=== PATIENT | female | born 1970 | race Caucasian/White ===

== ENCOUNTER 2018-07-03 00:50 | Inpatient (IN) ==
[2018-07-03] MEDS ORDERED: Ipratropium/Albuterol Neb 3 ML IH ONE (01:17)
[2018-07-03] MEDS ORDERED: methylPREDNISolone 125 MG/2 ML VIAL IVP ONE (01:17)
--- NOTE | 2018-07-03 01:26 | Emergency Department Note ---
Disposition Clinical Impression: Exertional dyspnea, Elevated troponin, NSTEMI (non-ST elevated myocardial infarction) Exacerbation of reactive airway disease Qualifiers: Asthma severity: unspecified severity Asthma persistence: unspecified Qualified Code(s): J45.901 - Unspecified asthma with (acute) exacerbation Disposition: Admitted As Inpatient Condition: Good Referrals: NONE,PCP [Primary Care Provider] - Vishal Armstrong [Family Provider] - Forms: ED Satisfaction Letter Time of Disposition: 02:32 SOB HPI - General Chief Complaint: ED Shortness of Breath/Dyspnea Stated Complaint: renee Time Seen by Provider: 07/03/18 00:55 Source: patient Mode of arrival: ambulatory Limitations: no limitations Nursing Notes Reviewed: Yes Vital Signs Reviewed: Yes - History of Present Illness 48-year-old female 1.5 pack per day smoker quit 10 days ago, CAD 2 stents presents to the emergency department with difficulty breathing. As gradually worsened over the past 10 days. Week ago she was seen and evaluated by her primary care physician and placed on breathing treatments and steroids. She reports the breathing treatments do improve her symptoms. The steroid she discontinued on her own because she did not feel it was helping. She reports a productive cough. Denies any fevers. Denies any chest pain. She gets winded on exertion and now at rest. Denies any nausea or vomiting. Denies a prior history of this. She has not been formally diagnosed with COPD. Denies any leg swelling. Denies history of blood clots, recent long-distance travel, cancer. Her granddaughter has similar symptoms of cough and congestion. Pt Subjective Complaint: shortness of breath, cough - Related Data Allergies Allergy/AdvReac Type Severity Reaction Status Date / Time No Known Allergies Allergy Verified 07/03/18 00:59 All systems ED: reviewed and negative except as stated. Review of Systems: As Per HPI Constitutional: Denies: fever, chills ENT ED: Reports: congestion Cardiovascular: Reports: dyspnea on exertion. Denies: chest pain Respiratory: Reports: cough, dyspnea, wheezes. Denies: hemoptysis Gastrointestinal: Denies: nausea, vomiting Musculoskeletal: Denies: back pain Neurological: Denies: headache Past Medical History - Past Medical History Attestation: Yes The following information was validated with the patient. Source: patient Medical history: Reports: coronary artery disease, hyperlipidemia, hypertension Physical Exam - General Limitations: no limitations General appearance: alert, obese - Head Head exam: atraumatic, normocephalic, normal inspection - Eye Eye exam: Present: normal appearance, PERRL, EOMI - ENT ENT exam: normal exam, normal oropharynx, mucous membranes moist - Neck Neck exam: Present: normal inspection, full ROM, trachea midline - Chest Chest inspection: Present: normal inspection. Absent: tenderness - Respiratory Respiratory exam: Present: respiratory distress, wheezes, accessory muscle use, prolonged expiratory phase, other (Poor inspiratory effort, tight aeration) - Expanded Respiratory Exam Location: decreased breath sounds: Left, Right - Cardiovascular Cardiovascular exam: Present: regular rate, normal rhythm, normal heart sounds - Expanded Cardiovascular Exam Peripheral pulses: 2+: radial (R), radial (L) - Abdominal Exam Abdominal exam: Present: soft, Non-Tender. Absent: tenderness, distention, guarding, rebound, rigidity - Extremities Exam Extremities exam: Present: normal inspection, full ROM, normal capillary refill. Absent: tenderness, pedal edema, calf tenderness - Neurological Exam Neurological exam: Present: alert, oriented X3 - Psychiatric Psychiatric exam: Present: normal affect, normal mood - Skin Skin exam: Present: warm, dry, intact, normal color. Absent: rash, cyanosis, diaphoresis Course Course Narrative: Patient presents with progressively shortness of breath with cough. She is afebrile. She is not hypoxic. She has very tight aeration with poor inspiratory effort. There is some wheezing on examination. Concerning for COPD /of airway disease exacerbation. Duoneb and steroids. Workup initiated. Patient is not tachycardic greater than 100 or hypoxic, low risk for PE from well score, PERC positive. Her initial EKG was performed in showed diffuse ST depressions with a possible left bundle branch block. Unfortunately there is no old EKG available for comparison. She denies any chest pain at this time. This could be likely demand ischemia. Will contact the hospice plan administrator discuss the EKG findings. - Reevaluation(s) Reevaluation #1: Patient has a leukocytosis with neutrophilia, no prior labs to compare. Electrolytes normal. He had a critical lab troponin 0.09. Patient will be given an aspirin. I do suspect this could be a demand ischemia by given EKG findings and hypertension will speak with cardiology. Impression is elevated troponin, NSTEMI, RAD exacerbation. Time: 02:29 Reevaluation #2: CT scan of the chest and not reveal pulmonary embolism. No evidence of pneumonia. I do suspect this is the likely component of reactive airway disease if not COPD. She again denies any chest pain. She reports her breathing is much better. She does have occasional wheezing but better aeration then prior. Reports occasionally cough up streaks of blood but denies any vomiting of blood, bloody stools or black tarry stools. At this time it is okay to initiate heparin for low ACS. Patient will be admitted to the medical service. Pression is elevated troponin, exertional dyspnea, NSTEMI Time: 03:51 - Consultations Consultation #1: Spoke to cardiology regarding the elevated troponin 0.[address] depression seen on EKG with AVR elevation. Patient has no chest pain. Possibility of demand ischemia from respiratory issues. No prior labs to compare. Image of the EKG was transmitted to the [facility] plans staff officer for review. Suspect LVH with strain pattern. Her BP has improved spontaneously. Agree with CT scan to evaluate for possible PE or other respiratory etiology. At this time would agree with admission and trending troponin. Would heparinize now and consider stopping if no dynamic changes with troponin. Patient also was able to ambulate to the physician documentation area without any difficulty or complaint of chest pain. Time: 02:37 Consultation #2: Spoke with on-call hospitalist alexis Alvarado to admit for dyspnea on exertion , NSTEMI, elevated trop, RAD/COPD exac. Requests to order the repeat troponin and they will follow. Given the leukocytosis and the patient's symptoms will treat with azithromycin for potential COPD exacerbation despite CT imaging and chest x-ray without focal infiltrate. Time: 04:08 Vital Signs Temperature 98.2 F 07/03/18 00:59 Pulse Rate 89 07/03/18 00:59 Respiratory Rate 18 07/03/18 00:59 Blood Pressure 190/98 07/03/18 00:59 O2 Sat by Pulse Oximetry 93 07/03/18 00:59 Temperature 98.2 F 07/03/18 01:25 Pulse Rate 89 07/03/18 03:48 Respiratory Rate 18 07/03/18 03:48 Blood Pressure 168/103 07/03/18 03:48 O2 Sat by Pulse Oximetry 95 07/03/18 03:48 Oxygen Delivery Oxygen Delivery Room Air Shortness of Breath/Dyspnea - MDM Narrative Medical decision making narrative: Patient was discussed with my attending physician who agrees with ED management and final disposition. They independently evaluated the patient. Please refer to their attestation to this encounter for additional information. This note was generated by [employer] voice recognition software and as a result grammatical or spelling errors may occur using this program. - Medical Records Medical records reviewed: Yes I reviewed the patient's medical records. - Lab Data Lab results reviewed: Yes I reviewed the patient's lab results. Result diagrams: 07/03/18 01:48 07/03/18 01:48 Lab Results 07/03/18 07/03/18 07/03/18 Range/Units 01:48 01:48 01:48 WBC 17.5 H (4.3-11.1) K/mcL RBC 5.06 H (3.82-4.97) M/mcL Hgb 15.7 H (11.5-15.4) g/dL Hct 46.2 H (35.3-44.9) % MCV 91.3 (83.0-100.0) fL MCH 31.0 (28.0-33.3) pg MCHC 34.0 (31.6-35.5) g/dL RDW 13.8 (11.5-14.5) % Plt Count 321 (140-400) K/mcL MPV 10.4 (9.4-12.4) fL Immature Gran % 0.7 (0-4) % Seg Neutrophils % 71.5 % Lymphocytes % 20.9 % Monocytes % 4.5 % Eosinophils % 2.0 % Basophils % 0.4 % Neutrophils # 12.5 H (1.6-8.9) K/mcL Lymphocytes # 3.7 (0.6-4.6) K/mcL Monocytes # 0.8 (0.0-1.3) K/mcL Eosinophils # 0.4 (0.0-0.6) K/mcL Basophils # 0.1 (0.0-0.2) K/mcL PT (9.4-12.1) Seconds INR APTT (26.0-36.0) Seconds Heparin Anti-Xa, Unfract (0.30-0.70) IU/mL Sodium 142 (136-145) mEq/L Potassium 3.3 L (3.5-5.1) mEq/L Chloride 106 (98-107) mEq/L Carbon Dioxide 28 (23-29) mEq/L BUN 15 (6-20) mg/dL Creatinine 0.93 (0.60-1.20) mg/dL Est GFR ( Amer) > 60 (> 60) Est GFR (Non-Af Amer) > 60 (> 60) BUN/Creatinine Ratio 16 (6-26) Glucose 113 H (70-105) mg/dL Calculated Osmolality 296 (280-300) Calcium 9.2 (8.6-10.3) mg/dL Troponin I 0.09 H* (< 0.04) ng/mL B-Natriuretic Peptide 206 H (Less than 100) pg/mL 07/03/18 Range/Units 01:48 WBC (4.3-11.1) K/mcL RBC (3.82-4.97) M/mcL Hgb (11.5-15.4) g/dL Hct (35.3-44.9) % MCV (83.0-100.0) fL MCH (28.0-33.3) pg MCHC (31.6-35.5) g/dL RDW (11.5-14.5) % Plt Count (140-400) K/mcL MPV (9.4-12.4) fL Immature Gran % (0-4) % Seg Neutrophils % % Lymphocytes % % Monocytes % % Eosinophils % % Basophils % % Neutrophils # (1.6-8.9) K/mcL Lymphocytes # (0.6-4.6) K/mcL Monocytes # (0.0-1.3) K/mcL Eosinophils # (0.0-0.6) K/mcL Basophils # (0.0-0.2) K/mcL PT 11.1 (9.4-12.1) Seconds INR 1.0 APTT 32.6 (26.0-36.0) Seconds Heparin Anti-Xa, Unfract 0.01 L (0.30-0.70) IU/mL Sodium (136-145) mEq/L Potassium (3.5-5.1) mEq/L Chloride (98-107) mEq/L Carbon Dioxide (23-29) mEq/L BUN (6-20) mg/dL Creatinine (0.60-1.20) mg/dL Est GFR ( Amer) (> 60) Est GFR (Non-Af Amer) (> 60) BUN/Creatinine Ratio (6-26) Glucose (70-105) mg/dL Calculated Osmolality (280-300) Calcium (8.6-10.3) mg/dL Troponin I (< 0.04) ng/mL B-Natriuretic Peptide (Less than 100) pg/mL - Radiology Data Radiology results reviewed: Yes I reviewed the patient's radiology results. Chest X-Ray 07/03/18 01:17 IMPRESSION: No focal pneumonia or any other acute cardiopulmonary abnormality. D/ / Timoteo Stone / Timoteo Stone Interpreting Provider: Timoteo Stone - EKG Data EKG attestation: Yes I reviewed and interpreted this EKG. EKG results narrative: EKG performed 0121 normal sinus rhythm 89 bpm, incomplete left bundle branch block, there is diffuse ST depressions throughout with elevation in V1 >2 blocks , patient is not having any chest pain, there is no old EKG available for comparison at this time. It does not meet Sgarbossa criteria.
--- NOTE | 2018-07-03 01:36 | Emergency Department Note ---
Disposition Clinical Impression: Exertional dyspnea Disposition: Admitted As Inpatient Referrals: NONE,PCP [Primary Care Provider] - Vishal Armstrong [Family Provider] - Forms: ED Satisfaction Letter General Adult HPI - General Chief complaint: ED Shortness of Breath/Dyspnea Stated complaint: renee Time Seen by Provider: 07/03/18 00:55 Source: patient Mode of arrival: ambulatory Limitations: no limitations - History of Present Illness Pain Scale: 6 - Related Data Allergies Allergy/AdvReac Type Severity Reaction Status Date / Time No Known Allergies Allergy Verified 07/03/18 00:59 Past Medical History - Past Medical History Medical history: Reports: COPD - Social History Smoking Status: Current every day smoker Smokeless Tobacco Status: No Alcohol use: Reports: none Drug use: Reports: none Physical Exam - General Limitations: no limitations General appearance: alert, in no apparent distress Course Vital Signs Temperature 98.2 F 07/03/18 00:59 Pulse Rate 89 07/03/18 00:59 Respiratory Rate 18 07/03/18 00:59 Blood Pressure 190/98 07/03/18 00:59 O2 Sat by Pulse Oximetry 93 07/03/18 00:59 Temperature 98.2 F 07/03/18 01:25 Pulse Rate 89 07/03/18 01:25 Respiratory Rate 18 07/03/18 01:25 Blood Pressure 190/98 07/03/18 01:25 O2 Sat by Pulse Oximetry 93 07/03/18 01:25 Oxygen Delivery Oxygen Delivery Room Air Attestation Statement - Attestation Attestation: I examined this patient and my medical decision-making was reviewed with the Resident Physician. I agree with the documented findings, disposition and treatment plan as described except to the extent set forth below. 48 year old female prsnet to the ED with complaints of exertional dyspnea and states that she also has a history of COPD and appears to have wheezes in addition. She does have a concerning cardiac history including a recent stent placement in Nov at [facility]. It appears that she has lateral lead ischemia and LBBB and mild elevation in Avr and V1 but no contigious lead elevations and this is likley demand ischemic related. She still smokes 1.5 ppd. We do not have any ekg to compare. This is a concerning ekg and we will continue with cardiopulmonary workup and then consult with cards and then admit to medicine
[2018-07-03 01:58] LABS: Basophils # 0.1 K/mcL (0.0-0.2); Basophils % 0.4 %; Eosinophils # 0.4 K/mcL (0.0-0.6); Hematocrit 46.2 % (35.3-44.9); Hemoglobin 15.7 g/dL (11.5-15.4); Immature Granulocytes % 0.7 % (0-4); Lymphocytes # 3.7 K/mcL (0.6-4.6); Lymphocytes % 20.9 %; Mean Corpuscular Volume 91.3 fL (83.0-100.0); Mean Platelet Volume 10.4 fL (9.4-12.4); Monocytes # 0.8 K/mcL (0.0-1.3); Monocytes % 4.5 %; Neutrophils # 12.5 K/mcL (1.6-8.9); Platelet Count 321 K/mcL (140-400); Red Blood Count 5.06 M/mcL (3.82-4.97); Red Cell Distribution Width 13.8 % (11.5-14.5); Segmented Neutrophils % 71.5 %
[2018-07-03 02:23] LABS: BUN/Creatinine Ratio 16 (6-26); Blood Urea Nitrogen 15 mg/dL (6-20); Calcium 9.2 mg/dL (8.6-10.3); Carbon Dioxide 28 mEq/L (23-29); Chloride 106 mEq/L (98-107); Glucose 113 mg/dL (70-105); Osmolality,Calculated 296 (280-300); Potassium 3.3 mEq/L (3.5-5.1); Sodium 142 mEq/L (136-145); eGFR For Non-African Americans > 60 (> 60)
[2018-07-03 02:26] LABS: Troponin I 0.09 ng/mL (< 0.04)
[2018-07-03] MEDS ORDERED: Aspirin 325 MG TABLET PO ONE (02:26)
[2018-07-03] MEDS ORDERED: Isovue-370 500 ML INFUS..BTL IV ONE (02:28)
[2018-07-03] MEDS ORDERED: *HR* Heparin 5,000 UNIT/ML VIAL IVP ONE (02:50)
[2018-07-03] MEDS ORDERED: *HR* Heparin 5,000 UNIT/ML VIAL IVP PRN ×2 (02:50)
[2018-07-03 02:51] LABS: Prothrombin Time 11.1 Seconds (9.4-12.1)
[2018-07-03 02:54] LABS: Activated Partial Thrombo Time 32.6 Seconds (26.0-36.0)
[2018-07-03] MEDS ORDERED: Heparin 25,000 UNIT/500 ML D5W 25,000 UNIT/500 ML BAG IVC SCH (03:00)
[2018-07-03 03:01] LABS: Heparin anti-factor XA UFH 0.01 IU/mL (0.30-0.70)
[2018-07-03] MEDS ORDERED: Azithromycin 500 MG in D5% in Water 250 ML IVPB ONE (04:11)
[2018-07-03] MEDS ORDERED: Naloxone 0.4 MG/ML INJ IVP PRN (06:48)
--- NOTE | 2018-07-03 06:59 | Internal Med History&Physical ---
Date of Encounter: 07/03/18 Time of Encounter: 06:20 Internal Medicine - H&P: HPI Chief complaint: Chest pain Admitted From: Home Plans for Post Hospital Care: Home History of present illness: Ms. Paul is a 48 year old female Patient has been experiencing chest pain and shortness of breath last 10 days. Pain was located in the center of her chest without radiation. She initially went to the [facility] ER about 1 week ago, and after workup they sent her home. For the last week she has been using albuterol treatments about every 4 hours but they have not helped. She has tried using oxygen at home about 2 L using a tank that she had around but this did not help her shortness of breath either. She particularly feels short of breath with exertion. She has not had symptoms of this level severity, but has had a heart attack about 2 years ago has 4 stents. In the emergency room troponins were elevated to 0.09, and her EKG showed sinus rhythm with a left bundle branch block and diffuse ST depressions and an elevation in V1. Emergency room called the drinking water technician on-call for their opinion, they recommended heparin drip, pain control and they will consult on patient in the morning. Chest x-ray was negative for pneumonia, CTA negative for PE. BNP slightly elevated 206, the patient does not have previous records to compare. Her white count was elevated to 17.5, and vital signs were stable. Upon my assessment patient has no complaints, no chest pain, abdominal pain, nausea, vomiting, diarrhea, constipation. She denies vision changes and headache. Past Med Surg Social Fam HX - Past Medical History Medical history: coronary artery disease, hyperlipidemia, hypertension - Past Surgical History Additional surgical history: left jaw surgery--d/t lock jaw. - Social History Smoking Status: Former smoker Packs per day: 1.5 Smokeless Tobacco Status: No Alcohol use: none Drug use: none - Family History Mother Age: 65 Family Member Ethnicity: Non- Living Status: Still Living Hx Family Cardiac Disorders: Yes (one heart attack) Father Age: 76 Family Member Ethnicity: Non- Living Status: Still Living Internal Medicine - H&P: Meds Clopidogrel [Plavix] 75 mg PO DAILY 07/03/18 [History] 3 Allergy/AdvReac Type Severity Reaction Status Date / Time No Known Allergies Allergy Verified 07/03/18 00:59 All Systems PM: A 10-system review of systems was performed and is negative for pertinent findings except as documented above in the HPI. - Constitutional Vitals: Temp Pulse Resp BP Pulse Ox 98 F 82 17 153/98 92 07/03/18 05:24 07/03/18 05:24 07/03/18 05:24 07/03/18 05:24 07/03/18 05:24 General appearance: Present: cooperative, A&O X 3, pleasant, no acute distress, answers questions appropriately - Head Head exam: Present: normal inspection - Eye Eye exam: Present: EOMI, normal appearance - Respiratory Respiratory exam: Present: decreased breath sounds, wheezes. Absent: respiratory distress - Cardiovascular Cardiovascular exam: Present: RRR. Absent: diastolic murmur, systolic murmur - GI/Abdominal GI/Abdominal exam: Present: normal bowel sounds, soft. Absent: tenderness - Extremities Exam Extremities exam: Present: warm, radial pulses palpable and symmetrical. Absent : calf tenderness, pedal edema, tenderness - Neurological Exam Neurological exam: Present: no focal deficits, strengths equal and symetr throughout. Absent: motor sensory deficit, facial droop, speech deficit - Skin Skin exam: Present: normal color, warm Internal Med - H&P Results - Labs CBC & Chem 7: 07/03/18 01:48 07/03/18 01:48 - Assessment and plan (1) NSTEMI (non-ST elevated myocardial infarction) Current Visit: Yes Status: Acute Assessment and plan: Patient has chest pain with exertion, improved with rest. Troponins elevated to 0.09, with nonspecific EKG changes. Cardiology called, heparin drip initiated. Patient's pain has resolved at this time. Continue heparin drip Continue to trend troponins Cardiology consult in the morning Consideration for stress test, echocardiogram and/or cardiac catheterization. Nothing by mouth for now pending decision on further workup (2) Elevated troponin Current Visit: Yes Status: Acute Assessment and plan: As above, patient presented with a possible NSTEMI, with elevated troponins of 0.09. Currently she has no chest pain. Continue to trend troponins Treatment as above (3) Exertional dyspnea Current Visit: Yes Status: Acute Assessment and plan: Chest x-ray and CTA negative, has been trying oxygen at home without much improvement. Could be related to her and STEMI. Does not have a formal diagnosis of COPD or CHF. BNP elevated to 206. Patient not in respiratory distress currently. ER suspected possible COPD-like picture or reactive airway disease, initiated treatment as such. Continue to monitor with pulse oximeter O2 via nasal cannula Continue breathing treatments Prednisone 40 mg daily Azithromycin 500 mg IV daily (4) Exacerbation of reactive airway disease Current Visit: Yes Status: Acute Assessment and plan: Patient has no formal pulmonary disease diagnosis, however she does have elevated BNP, and shortness of breath with exertion. Elevated white count could be secondary to the last 10 days of shortness of breath and chest pain, will treat as COPD-like picture. Continue treatment as above Qualifiers: Asthma severity: unspecified severity Asthma persistence: unspecified Qualified Code(s): J45.901 - Unspecified asthma with (acute) exacerbation - Time Spent With Patient Total time spent is greater than 50% in coordination of care (as documented) at patient's floor/unit and/or counseling patient: Greater than 35 minutes
[2018-07-03] MEDS ORDERED: Potassium Chloride Elixir 20 MEQ/15 ML UDC PO ONE (07:45)
[2018-07-03 08:47] LABS: Troponin I 0.05 ng/mL (< 0.04)
[2018-07-03] MEDS ORDERED: predniSONE 20 MG TABLET PO SCH (09:00)
--- NOTE | 2018-07-03 09:36 | Cardiology Consult Note ---
Addendum entered and electronically signed by Rolan Bearden 07/03/18 11:34: Discussed with the patient her struggles with her daughter's recent passing and her struggles with raising her daughter's child. -under tremendous emotional stress with limited social support -offered pastoral consult but declined at this point -if she changes her mind, will consult powder expert Original Note: <BeardenRolan - Last Filed: 07/03/18 10:40> Date of Encounter: 07/03/18 Time of Encounter: 08:20 Assessment and Plan (1) Atypical chest pain Current Visit: Yes Status: Acute pt has c/o chest pain for the last 2 1/2 days and SOB for the last ten days. -recently at [place] for supposed pneumonia, tx with cephalexin and steroids -pain at center of her chest with radiation to the neck, arms and back. -"squeezing" chest pain -heart attack 2 yrs ago s/p 4 stents. She states that this pain isn't similar to her heart attack. -She feels that leaning forward makes the pain better and that a deep inspiration makes it worse. She states that she has had fevers but didn't take her temperature. Her grandchild is also sick and was diagnosed with acute bronchitis last night and discharged with abx, tmax of the child was 102. The pt endorses fevers, palpitations, and orthopnea. In the ER the pt had a troponin of 0.09, second troponin of 0.05 and BNP 206. CXR negative or acute cardiopulmonary process. CTA negative for pulmonary embolism. EKG showed LBBB, diffuse ST depression. Currently the pt has no active chest pain. She denies SOB, N/V/D, diaphoresis. Plan: -pt has atypical chest pain that has been over the course of multiple days, lasts >20min, and changes with position; this may be pleuritis 2/2 to respiratory infxn -ECHO pending, ordered per primary on admission -continue to trend troponins -continue heparin drip as per protocol -CHELSEY score of 4 -plan for stress test today, nuclear type to r/o ischemia or infarct -continue home meds - Zestril, Imdur, Plavix, Coreg, Lipitor, ASA -check HbA1c and lipid panel (2) Coronary artery disease Current Visit: No Status: Acute Hx of CAD -IL 2 yrs ago s/p LHC and 4 stents -pt has multiple risk factors for CAD including obesity, HTN and 1.5 PPD smoking hx Plan: -check lipid panel and HbA1c continue home meds - Zestril, Imdur, Plavix, Coreg, Lipitor, ASA -advise for lifestyle modification, heart healthy low fat/low cholesterol diet, and weight loss Qualifiers: Coronary Disease-Associated Artery/Lesion type: unspecified vessel or lesion type [place] vs. transplanted heart: [place] heart Associated angina: with stable angina Qualified Code(s): I25.118 - Atherosclerotic heart disease of [place] coronary artery with other forms of angina pectoris (3) Hypertension Current Visit: No Status: Chronic Pt BP 190/98 on admission -BP 181/109 this morning -poorly controlled BP Plan: -hydralazine q6hr prn SBP >160 -continue home meds Zestril, Coreg Qualifiers: Hypertension type: essential hypertension Qualified Code(s): I10 - Essential (primary) hypertension (4) Hyperlipidemia Current Visit: No Status: Chronic Pt on Lipitr 80mg hs -continue home meds -check lipid panel -encourage low fat, low cholesterol heart healthy diet Qualifiers: Hyperlipidemia type: unspecified Qualified Code(s): E78.5 - Hyperlipidemia , unspecified (5) Obstructive sleep apnea Current Visit: No Status: Suspected Pt reports daytime somnolence, snoring, fatigue, and partner noticing her trying to gasp for breath at night -reccomend overnight pulse ox and PSG if primary okay and agrees -pt should lose weight and advise for lifestyle modifications (6) Dysphagia Current Visit: No Status: Chronic Pt reports having trouble swallowing meats -consult GI if primary okay with this -pt denies any weight loss, melena, hematochezia -denies dysphagia with liquids Qualifiers: Dysphagia type: pharyngeal phase Qualified Code(s): R13.13 - Dysphagia, pharyngeal phase Discussion w patient/family: The assessment and plan as outlined above was discussed with the patient and/or family members who expressed understanding and agreement. All questions were answered. Thank you for involving us in the care of your patient. Please call with any questions. History of Present Illness Consult date: 07/03/18 Requesting physician: Sarthak Cochran Consult reason: NSTEMI Chief complaint: "chest pain" History of present illness: Ms. Paul is a 48 year old female who presented to the ER with c/o chest pain for the last 2 1/2 days and SOB for the last ten days. She states that she went to the [place] ER last Tuesday and was given Cephalexin and diagnosed with pneumonia. The pt states that the chest pain is at the center of her chest with radiation to the neck, arms and back. She states that it is a "squeezing" chest pain. She has a prior hx of a heart attack 2 yrs ago s/p 4 stents. She states that this pain isn't similar to her heart attack. She feels that leaning forward makes the pain better and that a deep inspiration makes it worse. She states that she has had fevers but didn't take her temperature. Her grandchild is also sick and was diagnosed with acute bronchitis last night and discharged with abx, tmax of the child was 102. The pt endorses fevers, palpiltations, and orthopnea. She is unable to lay flat comfortably and states it is easier for her to lay on the side. She also states she has been using oxygen, however, it hasn't been helping her. She has been coughing up "black mucus." She is unemployed and states that she gets SOB when she cleans her house after a few minutes She reports daytime fatigue and somnolence. Snores at night. In the ER the pt had a troponin of 0.09, second troponin of 0.05 and BNP 206. CXR negativef or acute cardiopulmonary process. CTA negative for pulmonary embolism. EKG showed LBBB, diffuse ST depression. Currently the pt has no active chest pain. She denies SOB, N/V/D, diaphoresis. Fluids - none Electrolytes - potassium 3.3 Nutrition - currently NPO DVT prophylaxis - on heparin as per ACS protocol GI prophylaxis - not indicated Past Med Surg Social Fam HX - Past Medical History Medical history: coronary artery disease, hyperlipidemia, hypertension - Past Surgical History Additional surgical history: left jaw surgery--d/t lock jaw. - Social History Smoking Status: Former smoker Packs per day: 1.5 Smokeless Tobacco Status: No Alcohol use: none Drug use: none - Family History Mother Age: 65 Family Member Ethnicity: Non- Living Status: Still Living Hx Family Cardiac Disorders: Yes (one heart attack) Father Age: 76 Family Member Ethnicity: Non- Living Status: Still Living Medications and Allergies Aspirin [Adult Aspirin] 81 mg PO DAILY 07/03/18 [History] Atorvastatin Calcium [Lipitor] 80 mg PO HS 07/03/18 [History] Carvedilol [Coreg] 25 mg PO BID 07/03/18 [History] Clopidogrel [Plavix] 75 mg PO DAILY 07/03/18 [History] Isosorbide MONOnitrate (24 HR) [Imdur] 60 mg PO DAILY 07/03/18 [History] Lisinopril [Zestril] 40 mg PO DAILY 07/03/18 [History] 3 Allergy/AdvReac Type Severity Reaction Status Date / Time No Known Allergies Allergy Verified 07/03/18 00:59 All Systems Review: The remainder of the systems were reviewed and are negative - Constitutional Constitutional: fatigue, fever(s), no chills - Cardiovascular Cardiovascular: chest pain at rest, chest pain with exertion, dyspnea at rest, dyspnea on exertion, orthopnea, palpitations, paroxysmal nocturnal dyspnea, no leg edema - Gastrointestinal Gastrointestinal: no abdominal pain, no diarrhea, no nausea - Neurological Neurological: no numbness, no tingling Physical Examination Vital Signs, Last 4 Hours Temp Pulse Resp BP Pulse Ox 07/03/18 07:53 97.6 F 86 16 181/109 91 General: Conversant HEENT: Atraumatic, Normocephaly Neck: No JVD Cardiac: Reg Rate and Rhythm, Normal S1 and S2, No Murmur Lungs: Other (decreased breath sounds in all quadrants) Neuro: Alert and responsive, No focal deficits noted Abdomen: Soft Skin: No rashes noted on visualized skin Musculoskeletal: No Chest Wall Tenderness Extremities: No Edema Results 07/03/18 01:48 07/03/18 01:48 Lab Results 07/03/18 08:00 Troponin I 0.05 H* Consult Discharge Plan - Plan Referrals: NONE,PCP [Primary Care Provider] - Vishal Armstrong [Family Provider] - <Jayden Ace - Last Filed: 07/03/18 16:48> Date of Encounter: 07/03/18 Time of Encounter: 10:30 - Attending Attestation I examined this patient and my medical decision-making was reviewed with the Resident Physician. I agree with the documented findings, disposition and treatment plan as described except to the extent set forth below. CC: Chest pain HPI: PT complains of left sided mid sternal chest pain, on and off over last several days, squeezing sensation, 6/10 at most severe, onset at rest, associated with coughing and shortness of breath. Pt reports has had upper respiratory tract infection, with fever and productive cough over last three days. She notes chest pain has worsened with increased cough. She reports chest pain is much different from previous anginal chest pain experienced before IL in 2016, at which time she underwent LHC with PCI, reports TIMOTHY x 4 in unknown vessel. She reports that chest discomfort has resolved. She is under severe emotional and finacial stress with the recent of her daugher, and adopting her grandaughter. She is now pain free except if tries to cough. PMH: reviewed ROS: reviewed PE: pt seen and examined, agree with findings as documented. IMP/Plan: 1. Chest pain: atypical for previous anginal pain, minimal elevation of troponin , most consistent with demand ischemia, will order stress test to determine ischemic substrate. 2. CAD: hx severe single vessel dx, post IL with TIMOTHY x 3, unknown vessel, records requested. 3. Bronchitis; slowly resolving 4. Abnormal EKG; LVH, with repolarization changes. 5. Hypertension: not well controlled, will continue to adjust medications. Assessment and Plan Discussion w patient/family: The assessment and plan as outlined above was discussed with the patient and/or family members who expressed understanding and agreement. All questions were answered. Thank you for involving us in the care of your patient. Please call with any questions. History of Present Illness History of present illness: Ms. Paul is a 48 year old female All Systems Review: The remainder of the systems were reviewed and are negative Physical Examination Vital Signs, Last 4 Hours Resp Pulse Ox 07/03/18 10:11 18 92 Results 07/03/18 01:48 07/03/18 01:48 Lab Results 07/03/18 08:00 Troponin I 0.05 H*
[2018-07-03] MEDS: Ipratropium/Albuterol Neb 3 ML IH SCH ×3 (10:09→22:58)
[2018-07-03 10:13] LABS: Estimated Average Glucose 117 mg/dl; Hemoglobin A1C 5.7 %
[2018-07-03] MEDS ORDERED: Regadenoson 0.4 MG/5 ML SYRINGE IVP ONE (11:16)
--- NOTE | 2018-07-03 13:47 | Internal Med Progress Note ---
Hospitalist Progress Note - Encounter Date of Encounter: 07/03/18 Time of Encounter: 10:15 - Subjective Interval History: Continues to have mild retrosternal chest pain, nonradiating, not associated with shortness of breath or palpitations or cough. She does have history of coronary artery disease and 2 heart attacks in the past. - Exam Vitals: Temp Pulse Resp BP Pulse Ox 97.6 F 86 18 181/109 92 07/03/18 07:53 07/03/18 07:53 07/03/18 10:11 07/03/18 07:53 07/03/18 10:11 Exam: General: obese female lying comfortably in bed in no acute distress Chest: Clear to auscultation. slightly decreased at left base Heart: Normal S1 & S2; rhythmic. No rubs or murmurs. Abdomen: Non-distended, soft and nontender, obese Extremities: No clubbing, cyanosis or edema. No calf tenderness. Normal distal pulses. Neurological: Awake, alert and oriented to person, place and time. No focal deficits. Psych: Affect appropriate. - Assessment and Plan (1) Atypical chest pain Current Visit: Yes Status: Acute Assessment and Plan: Presents with atypical chest pain with history of CAD status post 4 stents, hypertension, hyperlipidemia. Continue telemetry monitoring, cycle troponins- second troponin 0.05, down from 0.09. Patient has been started on anticoagulation with IV heparin drip due to persistent chest pain. Continue aspirin, Plavix, statin, beta cole, HARPREET inhibitor. Cardiology consult appreciated, recommend nuclear stress test, report pending. Echocardiogram shows preserved EF, mild to moderate concentric LVH, mild LV diastolic dysfunction. (2) Coronary artery disease Current Visit: Yes Status: Chronic Assessment and Plan: Status post 4 stents. Continue aspirin, Plavix, beta cole, statin and Imdur. (3) Hyperlipidemia Current Visit: Yes Status: Chronic Assessment and Plan: Lipid profile shows minimally elevated LDL cholesterol. Continue statin. Lifestyle modifications. (4) Hypertension Current Visit: Yes Status: Chronic Assessment and Plan: Noted to have uncontrolled hypertension at the time of admission. Resume home medications, use when necessary IV hydralazine, blood pressure currently noted to be improving. Monitor closely. (5) Obstructive sleep apnea Current Visit: Yes Status: Suspected Assessment and Plan: Needs outpatient formal sleep studies. (6) Acute bronchitis Current Visit: Yes Status: Acute Assessment and Plan: CT angiogram of chest shows no evidence of pulmonary embolism or infection. Patient is noted to have leukocytosis with chest pain and shortness of breath. Could be acute bronchitis, continue azithromycin to complete a five-day course. Hold prednisone for now. No history of COPD or asthma. Patient has been a chronic smoker, quit recently. DVT Prophylaxis: On IV heparin drip. - Time Spent with Patient Total time spent is greater than 50% in coordination of care (as documented) at patient's floor/unit and/or counseling patient: Plan of Care Discussed with: patient Internal Medicine: Result - Labs CBC & Chem 7: 07/03/18 01:48 07/03/18 01:48 Labs: Cardiac Enzymes 07/03/18 Range/Units 08:00 Troponin I 0.05 H* (< 0.04) ng/mL - ABG Interpretation ABG results: PT/INR, D-dimer PT 11.1 Seconds (9.4-12.1) 07/03/18 01:48 - Impressions Impressions Echocardiogram 07/03/18 07:44 Impressions: LVEF 60%. Mild to moderate concentric left ventricular hypertrophy. Mild left ventricular diastolic dysfunction. Normal right ventricular structure and function. Mild mitral regurgitation. Mild tricuspid regurgitation. No pulmonary hypertension. Left Ventricular Wall Motion: Rest Echo Findings All wall segments showed normal motion. Findings: Study Quality * Technically challenging due to body habitus. ECG Findings * Normal sinus rhythm. Left Ventricle * LVEF 60%. * Mild to moderate concentric left ventricular hypertrophy. * Mild left ventricular diastolic dysfunction. Right Ventricle * Normal right ventricular structure and function. Left Atrium * Normal left atrial size. Right Atrium * Normal right atrial size. Mitral Valve * Normal mitral valve structure. * No mitral stenosis. * Mild mitral regurgitation. Aortic Valve * No aortic regurgitation. * Aortic valve not well visualized. * No aortic stenosis. Tricuspid Valve * Normal tricuspid valve structure. * Mild tricuspid regurgitation. * Estimated RA pressure is 3 mmHg. * Estimated RVSP is 33 mmHg. * No pulmonary hypertension. Pulmonic Valve * Pulmonic valve is not well visualized. * No pulmonic stenosis. * No pulmonic regurgitation. Pulmonary Artery * Pulmonary artery not well visualized. Aorta * Normally sized aortic root. Pericardium * There is no pericardial effusion present. Interatrial Septum * No evidence of PFO by color Doppler. IVC * The IVC is not dilated. * < 50% respiratory change. Consult Discharge Plan - Plan Referrals: NONE,PCP [Primary Care Provider] - Vishal Armstrong [Family Provider] - (2) Coronary artery disease Qualifiers: Coronary Disease-Associated Artery/Lesion type: [place] artery [place] vs. transplanted heart: [place] heart Associated angina: without angina Qualified Code(s): I25.10 - Atherosclerotic heart disease of [place] coronary artery without angina pectoris (3) Hyperlipidemia Qualifiers: Hyperlipidemia type: unspecified Qualified Code(s): E78.5 - Hyperlipidemia, unspecified (4) Hypertension Qualifiers: Hypertension type: essential hypertension Qualified Code(s): I10 - Essential (primary) hypertension (6) Acute bronchitis Qualifiers: Bronchitis organism: unspecified organism Qualified Code(s): J20.9 - Acute bronchitis, unspecified
[2018-07-03] MEDS: Aspirin Enteric Coated 81 MG Tablet PO SCH (15:37)
--- NOTE | 2018-07-03 15:44 | Event Note ---
<Rolan Bearden - Last Filed: 07/03/18 15:43> Date of Encounter: 07/03/18 Time of Encounter: 15:45 Stress test negative for ischemia/infarct -gated EF of 52% -HTN throughout study Cardiology will sign off at this point. <Jayden Ace - Last Filed: 07/03/18 16:51> Date of Encounter: 07/03/18 - Attending Attestation Reviewed results of stress imaging, agree with above.
--- NOTE | 2018-07-03 16:22 | Electrocardiograph Report ---
[place] [address] Test Date: 2018-07-03 Pat Name: Rhoda Paul Department: Room: 2A Gender: F Processing Tech: : 1970 Requested By: Sarthak Cochran Order Number: [id number] Reading MD: Amita Fermin Measurements Intervals [place] Rate: 89 P: 56 IN: 125 QRS: 42 QRSD: 109 T: 223 QT: 413 QTc: 503 Interpretive Statements Sinus rhythm Incomplete left bundle branch block LVH with secondary repolarization abnormality Borderline prolonged QT interval Electronically Signed On 07-03-2018 16:20:21 EDT by Amita Fermin
[2018-07-03] MEDS: *HR* Heparin 5,000 UNIT/ML VIAL SQ SCH (23:30)
[2018-07-04] MEDS: Ipratropium/Albuterol Neb 3 ML IH SCH ×3 (04:11→16:08)
[2018-07-04] MEDS ORDERED: Azithromycin 500 MG in D5% in Water 250 ML IVPB SCH (05:00)
[2018-07-04 05:57] LABS: Basophils # 0.1 K/mcL (0.0-0.2); Basophils % 0.3 %; Hematocrit 44.3 % (35.3-44.9); Hemoglobin 14.6 g/dL (11.5-15.4); Lymphocytes % 13.1 %; Mean Corpuscular Hemoglobin 30.4 pg (28.0-33.3); Mean Corpuscular Volume 92.3 fL (83.0-100.0); Mean Platelet Volume 10.4 fL (9.4-12.4); Monocytes # 1.2 K/mcL (0.0-1.3); Monocytes % 5.1 %; Neutrophils # 18.4 K/mcL (1.6-8.9); Platelet Count 306 K/mcL (140-400); Red Cell Distribution Width 14.5 % (11.5-14.5); Segmented Neutrophils % 79.5 %
[2018-07-04 07:44] LABS: BUN/Creatinine Ratio 26 (6-26); Blood Urea Nitrogen 21 mg/dL (6-20); Calcium 9.1 mg/dL (8.6-10.3); Carbon Dioxide 25 mEq/L (23-29); Chloride 107 mEq/L (98-107); Glucose 151 mg/dL (70-105); Magnesium 2.1 mg/dL (1.6-2.6); Osmolality,Calculated 296 (280-300); Potassium 3.4 mEq/L (3.5-5.1); Sodium 140 mEq/L (136-145); eGFR For Non-African Americans > 60 (> 60)
[2018-07-04] MEDS ORDERED: Lisinopril 20 MG TABLET PO SCH (09:00)
[2018-07-04] MEDS ORDERED: Isosorbide MONOnitrate (24 HR) 60 MG TAB.ER.24H PO SCH (09:00)
[2018-07-04] MEDS: Aspirin Enteric Coated 81 MG Tablet PO SCH (10:10)
[2018-07-04] MEDS: *HR* Heparin 5,000 UNIT/ML VIAL SQ SCH (10:10)
[2018-07-04 10:56] VITALS: BP 130/77
--- NOTE | 2018-07-04 14:26 | Discharge Summary ---
Date of Encounter: 07/05/18 Time of Encounter: 12:05 - Discharge Diagnosis (1) Atypical chest pain Priority: Primary Status: Acute (2) Elevated troponin Priority: Primary Status: Acute (3) Acute bronchitis Priority: Primary Status: Acute Qualifiers: Bronchitis organism: unspecified organism Qualified Code(s): J20.9 - Acute bronchitis, unspecified (4) Coronary artery disease Priority: Secondary Status: Chronic Qualifiers: Coronary Disease-Associated Artery/Lesion type: [place] artery [place] vs. transplanted heart: [place] heart Associated angina: without angina Qualified Code(s): I25.10 - Atherosclerotic heart disease of [place] coronary artery without angina pectoris (5) Hypertension Priority: Secondary Status: Chronic Qualifiers: Hypertension type: essential hypertension Qualified Code(s): I10 - Essential (primary) hypertension (6) Hyperlipidemia Priority: Secondary Status: Chronic Qualifiers: Hyperlipidemia type: unspecified Qualified Code(s): E78.5 - Hyperlipidemia , unspecified (7) Obstructive sleep apnea Priority: Secondary Status: Chronic Hospital course: Ms. Paul is a 48 year old female. She came to the emergency room complaining of anterior chest pain of about 2-1/ 2 days duration; dyspnea and off and on cough up about 10 days' duration. The patient has underlying coronary artery disease. She does have 4 coronary stents. She was supposedly treated recently for pneumonia; chest x-ray at the time of this admission was normal. The patient had troponin of 0.09; followed by a troponin of 0.05. BNP was 206. EKG showed LBBB. Cardiology was consulted. They ordered a Cardiolite stress test. The test was negative for ischemia or other significant abnormalities. Her breathing got better during this short hospitalization. She had pulse ox of 93% on room air on the day of discharge. CONDITION AT DISCHARGE: She continues to have mild precordial chest pain. Denies dyspnea. Her cough is mild. Denies wheezing. Skin: Free of rash and discoloration. Respiratory: Normal breath sounds with no crackles and wheezes bilaterally. GI: Abdomen is flat and soft with no palpable mass or visceromegaly. Neuro exam: There is no focal deficits. Normal speech, swallowing and gait. SEE DISCHARGE ORDERS/MEDICATIONS.. Discharge discussed with: patient, nurse - Time Spent with Patient Total time spent providing and/or coordinating discharge services: Greater than 30 minutes (40 minutes) - Discharge Medications Prescriptions: Ipratropium/Albuterol Neb [Duoneb] 3 ml IH Q6HR PRN #100 inhsol PRN Reason: Shortness Of Breath Atorvastatin Calcium [Lipitor] 80 mg PO HS 30 Days #30 tablet Isosorbide MONOnitrate (24 HR) [Imdur] 60 mg PO DAILY 30 Days #30 tab.er.24h Home Medications: Aspirin [Adult Aspirin] 81 mg PO DAILY 07/03/18 [History] Carvedilol [Coreg] 25 mg PO BID 07/03/18 [History] Clopidogrel [Plavix] 75 mg PO DAILY 07/03/18 [History] Lisinopril [Zestril] 40 mg PO DAILY 07/03/18 [History] Atorvastatin Calcium [Lipitor] 80 mg PO HS 30 Days #30 tablet 07/04/18 [Rx] Ipratropium/Albuterol Neb [Duoneb] 3 ml IH Q6HR PRN #100 inhsol 07/04/18 [Rx] Isosorbide MONOnitrate (24 HR) [Imdur] 60 mg PO DAILY 30 Days #30 tab.er.24h [Rx] Allergies/Adverse Reactions: 3 Allergy/AdvReac Type Severity Reaction Status Date / Time No Known Allergies Allergy Verified 07/03/18 00:59 Date of admission: 07/03/18 16:34 Primary care physician: PCP NONE Consults: Cardiology. Discharging clinician: Carter Triana Anticipated date of discharge: 07/04/18 - Constitutional Vitals: Temp Pulse Resp BP Pulse Ox 97.6 F 89 16 130/77 93 07/04/18 10:52 07/04/18 10:52 07/04/18 10:52 07/04/18 10:52 07/04/18 10:52 General appearance: Present: cooperative, A&O X 3, pleasant, no acute distress, answers questions appropriately - Patient Status Disposition: Home, Self-Care Condition: Good Functional capacity at discharge: independent ambulation Overall status at discharge: patient is back to baseline - Discharge Instructions Instructions: Isosorbide Mononitrate (By mouth), Myocardial Infarction (DC), Chest Pain (DC), Chronic Hypertension (DC) Follow Up With: Wade Vazquez [Resident] - 07/11/18 1:00 pm (hospital follow up and to establish as a new pt.) NONE,PCP [Primary Care Provider] - Vishal Armstrong [Family Provider] - - Diet and Activity Activity: resume usual activities as tolerated Diet: low fat, low cholesterol - VTE Deep Vein Thrombosis/Pulmonary Embolism Present on Admission: No
[2018-07-04] MEDS ORDERED: *HR* Heparin 5,000 UNIT/ML VIAL SQ SCH (22:00)
== END 2018-07-04 16:24 | disposition home or self-care (01) | DRG 311 ==
LOC: 2ANU 00:50 → EMEROOARM 00:50 → SUATTDRO 04:09 → 2ANU 04:59 → SUATTDRO 16:34
PROVIDERS: ADMIT Family Medicine; ATTEND Internal Medicine